=== PATIENT | male | born 2000 | race Caucasian/White ===

== ENCOUNTER 2022-04-14 15:47 | Outpatient (CLI) | payer BC, SELFPAY ==
--- NOTE | 2022-04-14 15:00 | DI.RAD_ITS ---
Exam(s) XR KNEE RT 4V AP,LAT,EARL,PAT EXAM: XR KNEE RT 4V AP,LAT,EARL,PAT CLINICAL HISTORY: fell 2 stories on right knee T14.90XA INJURY. TECHNIQUE: 2D digital imaging was performed. Three views. COMPARISON: No exams were available for comparison FINDINGS: BONES: No acute fracture is present. No bony destructive lesion is seen. JOINTS: Joint spaces are maintained. The knee is normally aligned. No joint effusion is seen. SOFT TISSUE: Normal. IMPRESSION: Unremarkable radiographs of the right knee. DATA REPOSITORY: RADIATION DOSE DELIVERED:
== END 2022-04-14 16:07 ==
LOC: DI 15:51
PROVIDERS: PCP Student in an Organized Health Care Education/Training Program; Visit Provider Nurse Practitioner Family
DX: S89.91XA Unspecified injury of right lower leg, initial encounter (principal); X58.XXXA Exposure to other specified factors, initial encounter
CPT/HCPCS: 73564

== ENCOUNTER 2022-07-15 00:46 | Outpatient (CLI) | payer BC, SELFPAY ==
--- NOTE | 2022-07-15 08:00 | DI.MRI_ITS ---
Exam(s) MR LOWER JOINT RT WO EXAM: MR LOWER JOINT RT WO CLINICAL HISTORY: R KNEE INJURY,LOCKING, POPPING,TRAUMA,T14.90XA,R29.898,M23.91. TECHNIQUE: Multiplanar multisequence MRI was performed. COMPARISON: CR XR KNEE RT 4V AP,LAT,EARL,PAT from 04/14/2022 FINDINGS: BONES: There is no fracture or contusion pattern. There are small bone island seen in the distal femu r. JOINTS: Articular cartilage is unremarkable. No effusion is present. TENDONS: Extensor mechanism: Unremarkable. Medial retinaculum: Unremarkable. Lateral retinaculum: Unremarkable. Popliteus: Unremarkable. MUSCLES: Unremarkable. MENISCI: The medial meniscus is unremarkable. The lateral meniscus is unremarkable. SOFT TISSUES: Unremarkable. LIGAMENTS: Anterior Cruciate: Unremarkable. Posterior Cruciate: Unremarkable. Medial Collateral:Unremarkable. Lateral Collateral: Unremarkable. OTHER: IMPRESSION: No evidence of a meniscal or ligament tear. DATA REPOSITORY:
== END 2022-07-15 01:06 ==
LOC: DI 00:46
PROVIDERS: PCP Student in an Organized Health Care Education/Training Program; Visit Provider Student in an Organized Health Care Education/Training Program
DX: M25.561 Pain in right knee (principal); M23.8X1 Other internal derangements of right knee
CPT/HCPCS: 73721